=== PATIENT | male | born 1985 ===

== ENCOUNTER 2017-12-19 05:27 | Emergency (ER) | payer OTHER ==
[2017-12-19 05:58] VITALS: RESP 16; TEMP 97.8
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
[2017-12-19 07:00] VITALS: BP 128/78; PULSE 66; O2SAT 100
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
== END 2017-12-19 06:58 | disposition home or self-care (01) ==
LOC: C.ER 05:27
DX: S43.401A Unspecified sprain of right shoulder joint, initial encounter (principal); V89.2XXA Person injured in unspecified motor-vehicle accident, traffic, initial encounter

== ENCOUNTER 2017-12-25 11:59 | Emergency (ER) | payer OTHER, BC ==
--- NOTE | 2017-12-25 12:45 | C.PDOC ---
Time Seen by Provider: 12/25/17 12:42 Chief Complaint (Nursing): Upper Extremity Problem/Injury Past Medical History Vital Signs: Last Vital Signs Temp 98 F 12/25/17 12:14 Pulse 68 12/25/17 12:14 Resp 16 12/25/17 12:14 BP 106/70 12/25/17 12:14 Pulse Ox 98 12/25/17 12:14 Family History: States: Unknown Family Hx - Social History Hx Alcohol Use: No Hx Substance Use: No - Immunization History Hx Tetanus Toxoid Vaccination: No Hx Influenza Vaccination: No ED Course And Treatment O2 Sat by Pulse Oximetry: 98 Disposition - Disposition
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
[2017-12-25 13:36] VITALS: BP 117/73; PULSE 67; RESP 20; TEMP 98.1
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
[2017-12-25 14:32] VITALS: O2SAT 98
== END 2017-12-25 13:41 | disposition home or self-care (01) ==
LOC: C.ER 11:59
DX: S16.1XXA Strain of muscle, fascia and tendon at neck level, initial encounter (principal); S39.012A Strain of muscle, fascia and tendon of lower back, initial encounter; S43.401A Unspecified sprain of right shoulder joint, initial encounter; V49.9XXA Car occupant (driver) (passenger) injured in unspecified traffic accident, initial encounter; Z72.0 Tobacco use